=== PATIENT | male | born 1995 | race Caucasian/White ===

== ENCOUNTER 2022-06-10 23:02 | Emergency (ER) | payer SELFPAY ==
[~2022-06-10] VITALS: Ht 182.9 cm; Wt 80.0 kg
[2022-06-11 00:32] VITALS: BP 136/74
== END 2022-06-11 01:05 | disposition home or self-care (01) ==
LOC: ER 23:02
DX: F41.9 Anxiety disorder, unspecified (principal)
CPT/HCPCS: 99283